=== PATIENT | male | born 1970 | race Caucasian/White ===

== ENCOUNTER 2017-03-27 11:36 | Emergency (ER) | payer BC ==
[~2017-03-27] VITALS: Ht 175.3 cm; Wt 95.0 kg
[2017-03-27] MEDS ORDERED: BACTRIM,SEPT1 TABLET PO (18:29)
[2017-03-27 18:46] VITALS: BP 134/70
== END 2017-03-27 18:46 | disposition home or self-care (01) ==
LOC: EME 11:36
PROC: 0HQDXZZ Repair Right Lower Arm Skin, External Approach (ICD-10-PCS; principal; 2017-03-27)
DX: S51.811A Laceration without foreign body of right forearm, initial encounter (principal); W29.0XXA Contact with powered kitchen appliance, initial encounter; Z88.0 Allergy status to penicillin; F17.200 Nicotine dependence, unspecified, uncomplicated
CPT/HCPCS: 73090; 99281; 99284